=== PATIENT | female | born 1950 | race Caucasian/White ===

== ENCOUNTER → 2017-04-08 | Outpatient (CLI) | payer BC ==
--- NOTE | 2017-04-08 13:04 | DIAGNOSTIC IMAGING REPORT ---
RIGHT EXTREMITY NONVASCULAR LIMITED HISTORY:66 yearsFemale. History of right leg swelling. COMPARISON: None available. TECHNIQUE: Multiple real-time sonographic images of the right inguinal tissues were obtained assessing grayscale appearance and color Doppler flow. FINDINGS: Within the right inguinal region there are 2 normal-appearing lymph nodes seen both of which demonstrate echogenic fatty aimee with hypoechoic cortex. The first node measures 0.7 x 0.5 x 1.0 cm. The second node measures 0.6 x 0.5 x 1.1 cm. No pathologically enlarged or abnormal appearing lymph nodes are seen on this study. IMPRESSION: Within the right inguinal region there are two morphologically normal-appearing lymph nodes seen measuring up to 1.1 cm. The above report was generated using voice recognition software. It may contain grammatical, syntax or spelling errors. Electronically signed by: Isacc Sebastian M.D. 04/08/2017 1:02 PM Dictated Date/Time: 04/08/2017 1:00 PM
== END | disposition home or self-care (01) ==
LOC: C.ULTRBC 12:15
PROVIDERS: ATTEND Dermatology
DX: R59.9 Enlarged lymph nodes, unspecified (principal); Z85.820 Personal history of malignant melanoma of skin; M79.89 Other specified soft tissue disorders